=== PATIENT | male | born 1980 | race Hispanic/Latino ===

== ENCOUNTER 2019-05-22 12:07 | Emergency (ER) | payer MEDICARE ==
--- NOTE | 2019-05-22 12:29 | Event Note ---
ED Screening Note Date of service: 05/22/19 Time: 12:27 ED Screening Note: 39 y/o male comes in for a head laceration during his seizure today. Has non missed any of is medication. No other complaints. This initial assessment/diagnostic orders/clinical plan/treatment(s) is/are subject to change based on patients health status, clinical progression and re- assessment by fellow clinical providers in the ED. Further treatment and workup at subsequent clinical providers discretion. Patient/guardian urged not to elope from the ED as their condition may be serious if not clinically assessed and managed. Initial orders include:
[2019-05-22] MEDS ORDERED: BOOSTRIX IM ONE (13:26)
[2019-05-22] MEDS ORDERED: XYLOCAINE 1%/ EPI 1:100,000 INFILTRATI ONE (13:27)
--- NOTE | 2019-05-22 14:47 | Cat Scan Report ---
CT HEAD WITHOUT CONTRAST HISTORY: Head injury earlier today, seizure, laceration to head COMPARISON: None TECHNIQUE: CT images of the head were obtained without contrast. CONTRAST: None. FINDINGS: Cerebral and Cerebellar Hemispheres: No evidence of mass or mass effect. No midline shift. No acute hemorrhage. No acute cortical infarction. No extra-axial fluid collection. Ventricles: Normal in size and configuration for age. Osseous Structures: No significant abnormality. Visualized Paranasal Sinuses: No significant abnormality. Additional Findings: Mild left frontal soft tissue swelling is noted. IMPRESSION: No acute intracranial abnormality. Mild left frontal soft tissue swelling. Signer Name: Jose Boykin Jr, MD Signed: 05/22/2019 2:43 PM Workstation Name: [id number]
--- NOTE | 2019-05-22 15:18 | Cat Scan Report ---
CT cervical spine without contrast INDICATION: Acute neck injury, neck pain. TECHNIQUE: Axial imaging performed through the without the use of contrast. Sagittal and coronal re constructed images were also reviewed. All CT scans at this location are performed using CT dose red uction for ALARA by means of automated exposure control. COMPARISON: None FINDINGS: Alignment: Spinal alignment is normal. Bones: There is no acute osseous abnormality. Bridging or near bridging anterior osteophytes are no susie at C5-6, C6-7 and C7-T1. The posterior elements and facet joints are unremarkable. Soft tissues: No acute or significant incidental soft tissue abnormality. IMPRESSION: Mild cervical spondylosis as described. No acute injury is detected. Signer Name: Jose Boykin Jr, MD Signed: 05/22/2019 3:14 PM Workstation Name: [id number]
--- NOTE | 2019-05-22 15:34 | Emergency Department Report ---
ED Seizure HPI - General Chief Complaint: Seizure Stated Complaint: HEAD/ANKLE INJURY Time Seen by Provider: 05/22/19 13:19 Source: family Mode of arrival: Ambulatory Limitations: No Limitations - History of Present Illness Initial Comments: 39-year-old male past medical history of seizures on multiple medications presents to [facility] complaining of seizure prior to arrival resulting in head injury with laceration. Patient wears a helmet because he has seizures almost daily despite compliance with medication. Last dose of seizure medications this a.m. Patient complains of 1/10 pain to the left side of his head where the laceration is present. He also complains of mild neck pain. He denies significant headache, nausea, vomiting, blurred vision, focal numbness, or focal weakness. Neurologist: Dr. Tran - Related Data Home Medications Medication Instructions Recorded Confirmed Last Taken Brivaracetam [Briviact] 100 mg PO BID 05/22/19 05/22/19 Unknown Escitalopram Oxalate [Lexapro] 20 mg PO BID 05/22/19 05/22/19 Unknown Lacosamide [Vimpat] 200 mg PO BID 05/22/19 05/22/19 Unknown Topiramate [Topiramate ER] 150 mg PO Q12H 05/22/19 05/22/19 Unknown cloBAZam (NF) [Onfi (Nf)] 20 mg PO BID 05/22/19 05/22/19 Unknown Allergies Allergy/AdvReac Type Severity Reaction Status Date / Time No Known Allergies Allergy Verified 05/22/19 12:30 ED Review of Systems ROS: Stated complaint: HEAD/ANKLE INJURY Other details as noted in HPI Comment: All other systems reviewed and negative ED Past Medical Hx - Past Medical History Previous Medical History?: Yes Hx Seizures: Yes - Surgical History Past Surgical History?: Yes Additional Surgical History: Bilateral ankle surgery - Social History Smoking Status: Current Some Day Smoker Substance Use Type: None - Medications Home Medications: Home Medications Medication Instructions Recorded Confirmed Last Taken Type Brivaracetam [Briviact] 100 mg PO BID 05/22/19 05/22/19 Unknown History Escitalopram Oxalate [Lexapro] 20 mg PO BID 05/22/19 05/22/19 Unknown History Lacosamide [Vimpat] 200 mg PO BID 05/22/19 05/22/19 Unknown History Topiramate [Topiramate ER] 150 mg PO Q12H 05/22/19 05/22/19 Unknown History cloBAZam (NF) [Onfi (Nf)] 20 mg PO BID 05/22/19 05/22/19 Unknown History ED Physical Exam - General Limitations: No Limitations - Other Other exam information: General: No limitations, patient is alert in no acute distress Head exam: With parietal scalp laceration 9 cm without active bleeding Eyes exam: Normal appearance, pupils equal reactive to light, extraocular movements intact ENT: Moist mucous membrane, normal oropharynx Neck exam: Normal inspection, full range of motion, no meningismus, minimum lower cervical midline tenderness. Tenderness greatest in the left-sided paraspinal muscles. Respiratory exam: Clear to auscultation bilateral, no wheezes, rales, crackles Cardiovascular: Normal rate and rhythm, normal heart sounds Abdomen: Soft, nondistended, and nontender, with normal bowel sounds, no rebound, or guarding Extremity: Full range of motion normal inspection no deformity Back: Normal Inspection, full range of motion, no tenderness Neurologic: Alert, oriented x3, cranial nerves intact, no motor or sensory deficit Psychiatric: normal affect, normal mood Skin: Warm, dry ED Course Vital Signs 05/22/19 05/22/19 05/22/19 12:20 13:15 13:30 Temperature 98.7 F Pulse Rate 84 74 75 Respiratory 14 19 14 Rate Blood Pressure Blood Pressure 116/86 [Right] O2 Sat by Pulse 97 98 98 Oximetry 05/22/19 05/22/19 05/22/19 13:46 14:14 14:16 Temperature Pulse Rate 75 75 Respiratory 20 16 Rate Blood Pressure 113/75 126/78 126/78 Blood Pressure [Right] O2 Sat by Pulse 98 98 98 Oximetry 05/22/19 14:30 Temperature Pulse Rate 69 Respiratory 18 Rate Blood Pressure 130/83 Blood Pressure [Right] O2 Sat by Pulse 99 Oximetry - Laceration /Wound Repair Left Head Wound Location: head Wound Length (cm): 9 Wound's Depth, Shape: linear Wound Explored: clean Irrigated w/ Saline (ccs): 200 Anesthesia: Lidocaine w/ Epi Volume Anesthetic (ccs): 6 Number of Sutures: 9 (maco) Layer Closure?: No Sterile Dressing Applied?: Yes ED Medical Decision Making - Radiology Data Radiology results: report reviewed CT cervical spine without contrast INDICATION: Acute neck injury, neck pain. TECHNIQUE: Axial imaging performed through the without the use of contrast. Sagittal and coronal reconstructed images were also reviewed. All CT scans at this location are performed using CT dose reduction for ALARA by means of automated exposure control. COMPARISON: None FINDINGS: Alignment: Spinal alignment is normal. Bones: There is no acute osseous abnormality. Bridging or near bridging anterior osteophytes are noted at C5-6, C6-7 and C7-T1. The posterior elements and facet joints are unremarkable. Soft tissues: No acute or significant incidental soft tissue abnormality. IMPRESSION: Mild cervical spondylosis as described. No acute injury is detected. CT HEAD WITHOUT CONTRAST HISTORY: Head injury earlier today, seizure, laceration to head COMPARISON: None TECHNIQUE: CT images of the head were obtained wiONTRAST: None. FINDINGS: Cerebral and Cerebellar Hemispheres: No evidence of mass or mass effect. No midline shift. No acute hemorrhage. No acute cortical infarction. No extra-axial fluid collection. Ventricles: Normal in size and configuration for age. Osseous Structures: No significant abnormality. Visualized Paranasal Sinuses: No significant abnormality. Additional Findings: Mild left frontal soft tissue swelling is noted. IMPRESSION: No acute intracranial abnormality. Mild left frontal soft tissue swelling. - Medical Decision Making Patient has frequent almost daily seizures and wears a helmet. Declined blood work. Only came into the ER due to head injury with laceration. Imaging studies are unremarkable. Laceration repaired. Patient be discharged with follow-up - Differential Diagnosis seizure, intracranial hemorrhage, fracture Critical Care Time: No Critical care attestation.: If time is entered above; I have spent that time in minutes in the direct care of this critically ill patient, excluding procedure time. ED Disposition Clinical Impression: Breakthrough seizure, Minor head injury, Scalp laceration Disposition: DC-01 TO HOME OR SELFCARE Is pt being admited?: No Does the pt Need Aspirin: No Condition: Stable Instructions: Laceration (ED), Minor Head Injury (ED), Epilepsy (ED) Additional Instructions: Continuing your current medication as prescribed. Follow up with your doctor or the clinic/doctor provided. Return if symptoms worsen as indicated by your discharge instructions. Return in 7 days for staple removal . You may also follow up with your primary care doctor for staple removal Referrals: your, neurologist [Other] - 3-5 Days IRWIN FUNES MD [Primary Care Provider] - 7-10 days (7 days for staple removal) Time of Disposition: 15:36
[2019-05-22 17:06] VITALS: BP 144/92
== END 2019-05-22 17:05 | disposition home or self-care (01) ==
LOC: ED 12:07
DX: S01.01XA Laceration without foreign body of scalp, initial encounter (principal); G40.909 Epilepsy, unspecified, not intractable, without status epilepticus; F17.200 Nicotine dependence, unspecified, uncomplicated; W26.8XXA Contact with other sharp object(s), not elsewhere classified, initial encounter; Y93.89 Activity, other specified; Y92.89 Other specified places as the place of occurrence of the external cause; Y99.8 Other external cause status
CPT/HCPCS: 70450; 72125; 82962; 90471; 90715

== ENCOUNTER 2019-05-29 12:30 | Emergency (ER) | payer MEDICARE ==
--- NOTE | 2019-05-29 12:44 | Emergency Department Report ---
Suture/Staple Removal - [facility] Chief Complaint: Laceration/Recheck/Suture Stated Complaint: MACO REMOVED Time Seen by Provider: 05/29/19 12:43 When Sutures or Maco Placed: 5-7 Days Ago Wound Location: head ED Review of Systems ROS: Stated complaint: MACO REMOVED Other details as noted in HPI Constitutional: denies: chills, fever Eyes: denies: eye pain, eye discharge, vision change ENT: denies: ear pain, throat pain Respiratory: denies: cough, shortness of breath, wheezing Cardiovascular: denies: chest pain, palpitations Endocrine: no symptoms reported Gastrointestinal: denies: abdominal pain, nausea, diarrhea Genitourinary: denies: urgency, dysuria Musculoskeletal: denies: back pain, joint swelling, arthralgia Skin: denies: rash, lesions Neurological: denies: headache, weakness, paresthesias Psychiatric: denies: anxiety, depression Hematological/Lymphatic: denies: easy bleeding, easy bruising ED Past Medical Hx - Past Medical History Previous Medical History?: Yes Hx Seizures: Yes - Surgical History Additional Surgical History: Bilateral ankle surgery - Social History Smoking Status: Current Some Day Smoker Substance Use Type: None - Medications Home Medications: Home Medications Medication Instructions Recorded Confirmed Last Taken Type Brivaracetam [Briviact] 100 mg PO BID 05/22/19 05/22/19 Unknown History Escitalopram Oxalate [Lexapro] 20 mg PO BID 05/22/19 05/22/19 Unknown History Lacosamide [Vimpat] 200 mg PO BID 05/22/19 05/22/19 Unknown History Topiramate [Topiramate ER] 150 mg PO Q12H 05/22/19 05/22/19 Unknown History cloBAZam (NF) [Onfi (Nf)] 20 mg PO BID 05/22/19 05/22/19 Unknown History Suture Removal Exam - Exam General: Vital signs noted. No distress. Alert and acting appropriately. Wound: No Pathologic Erythema, No Tenderness, No Drainage, No Pus, No Wound Dehiscence Other Systems: All other systems reviewed and are unremarkable. ED Course - Reevaluation(s) Reevaluation #1: 05/29/19 12:45 Patient is speaking in full sentences with no signs of distress noted. ED Recheck MDM - Medical Decision Making total of 9 maco has been removed. Patient tolerated well. Patient was instructed to Follow-up with a primary care doctor in 3-5 days or if symptoms worsen and continue return to emergency room as soon as possible. At time of discharge, the patient does not seem toxic or ill in appearance. No acute signs of distress noted. Patient agrees to discharge treatment plan of care. No further questions noted by the patient. Critical care attestation.: If time is entered above; I have spent that time in minutes in the direct care of this critically ill patient, excluding procedure time. ED Disposition Clinical Impression: Removal of staple Disposition: DC-01 TO HOME OR SELFCARE Is pt being admited?: No Does the pt Need Aspirin: No Condition: Stable Additional Instructions: Follow-up with a primary care doctor in 3-5 days or if symptoms worsen and continue return to emergency room as soon as possible. Referrals: PRIMARY CAREMD [Referring] - 3-5 Days LAURA FREEMAN MD [Staff Physician] - 3-5 Days [facility] [Outside] - 3-5 Days [facility] [Outside] - 3-5 Days Forms: Work/School Release Form(ED)
[2019-05-29 12:54] VITALS: BP 128/89
== END 2019-05-29 13:56 | disposition home or self-care (01) ==
LOC: ED 12:30
DX: S01.91XD Laceration without foreign body of unspecified part of head, subsequent encounter (principal); F17.200 Nicotine dependence, unspecified, uncomplicated; W26.8XXD Contact with other sharp object(s), not elsewhere classified, subsequent encounter